=== PATIENT | male | born 1970 | race African-American/Black ===

== ENCOUNTER 2023-02-20 11:23 | Emergency (ER) | payer OTHER ==
[2023-02-20 11:37] VITALS: BP 118/72; PULSE 60; RESP 18; TEMP 98.1; BMI 23.0
[2023-02-20] MEDS ORDERED: IBUPROFEN 400 MG TABLET (FP) PO ONE ×2 (13:14→14:13)
[2023-02-20] MEDS ORDERED: LIDOCAINE 5% TOPICAL PATCH TP ONE (13:15)
[2023-02-20] MEDS ORDERED: LIDOCAINE 4% PATCH TP ONE (14:12)
[2023-02-20] MEDS ORDERED: LIDOCAINE PATCH REMOVAL MC ONE (22:00)
== END 2023-02-20 14:44 | disposition home or self-care (01) ==
LOC: JERFT 11:23
DX: M54.9 Dorsalgia, unspecified (principal); W18.39XA Other fall on same level, initial encounter; Y99.0 Civilian activity done for income or pay
CPT/HCPCS: 99283-25